=== PATIENT | female | born 1960 | race Caucasian/White ===

== ENCOUNTER 2023-04-22 10:56 | Emergency (ER) | payer MEDICARE ==
[~2023-04-22] VITALS: Ht 152.4 cm; Wt 70.5 kg
[2023-04-22 10:58] VITALS: TEMP 98.4
[2023-04-22] MEDS ORDERED: OMEP20 PO (11:06)
[2023-04-22 15:40] VITALS: BP 145/95; PULSE 75; RESP 16
== END 2023-04-22 16:16 | disposition home or self-care (01) ==
LOC: EMS 10:58
DX: S52.121A Displaced fracture of head of right radius, initial encounter for closed fracture (principal); S63.501A Unspecified sprain of right wrist, initial encounter; Z98.890 Other specified postprocedural states; Z88.5 Allergy status to narcotic agent; Z88.8 Allergy status to other drugs, medicaments and biological substances; W01.0XXA Fall on same level from slipping, tripping and stumbling without subsequent striking against object, initial encounter; Y93.89 Activity, other specified; Y92.89 Other specified places as the place of occurrence of the external cause; Y99.8 Other external cause status
CPT/HCPCS: 99284; 73080-TC; 73110-TC; Z7502

== ENCOUNTER 2023-06-11 12:10 | Emergency (ER) | payer MEDICARE, OTHER ==
[~2023-06-11] VITALS: Ht 152.4 cm; Wt 70.5 kg
[~2023-06-11 12:10] MED LIST: OMEP20 PO
[2023-06-11 12:13] VITALS: TEMP 98.4
[2023-06-11 13:45] VITALS: BP 155/85; PULSE 70; RESP 12
== END 2023-06-11 14:05 | disposition home or self-care (01) ==
LOC: EMS 13:24
DX: S22.31XA Fracture of one rib, right side, initial encounter for closed fracture (principal); S20.211A Contusion of right front wall of thorax, initial encounter; K21.9 Gastro-esophageal reflux disease without esophagitis; Z88.5 Allergy status to narcotic agent; W19.XXXA Unspecified fall, initial encounter; Y93.89 Activity, other specified; Y92.89 Other specified places as the place of occurrence of the external cause; Y99.8 Other external cause status
CPT/HCPCS: 71101; 99283